=== PATIENT | female | born 1950 | race Caucasian/White ===

== ENCOUNTER 2018-07-27 15:13 | Inpatient (IN) | payer OTHER ==
[~2018-07-27] VITALS: Ht 172.7 cm; Wt 76.3 kg
--- NOTE | ~2018-07-27 | EKG ---
[place], [place] ELECTROCARDIOGRAM REPORT NAME: JUAN MELGOZA UNIT #: [id number] ROOM: 519 DOCTOR: EPIPHANY DRAFT REPORT BIRTHDATE: [birth year] [facility] Test Date: 2018-07-27 Test Time: 16:37:27 Pat Name: JUAN MELGOZA Department: Room: 519 Gender: F Equipment Service Engineer: Booker Cabello : 1950 Requested By: SHAILESH PAN Order Number: [id number] Reading MD: Ha Cooley MD Measurements Intervals [place] Rate: 56 P: 103 GA: 145 QRS: 32 QRSD: 92 T: 40 QT: 458 QTc: 443 Interpretive Statements Sinus rhythm Probable anteroseptal infarct, old Electronically Signed On 07-31-2018 8:29:47 PST by Ha Cooley MD CM:EKGRPT:ELECTROCARDIOGRAM REPORT [id number] SHAILESH PAN EPIPHANY DRAFT REPORT SHAILESH PAN
[2018-07-27 15:14] VITALS: BP 110/43
[2018-07-27 15:34] LABS: BASO % 0.6 % (0.0-1.0); EOS # 0.1 10*3/uL (0.0-0.4); EOS % 1.9 % (1.0-4.0); HEMATOCRIT 39.2 % (37.0-47.0); HEMOGLOBIN 12.8 g/dl (12.0-16.0); LYMPH # 1.3 10*3/uL (1.3-4.4); LYMPH % 27.7 % (27.0-41.0); MEAN CELL VOLUME 95.8 fl (81.0-99.0); MEAN CORPUSCULAR HGB 31.3 pg (27.0-31.0); MEAN CORPUSCULAR HGB CONC 32.7 g/dl (33.0-37.0); MONO # 0.5 10*3/uL (0.1-1.0); MONO % 9.8 % (3.0-9.0); NEUT # 2.8 10*3/uL (2.3-7.9); NEUT % 59.8 % (47.0-73.0); PLATELET COUNT AUTOMATED 243 10*3/uL (130-400); RED BLOOD COUNT 4.09 10*6/uL (4.10-5.10); RED CELL DISTRI WIDTH 12.7 % (0-14.5); WHITE BLOOD COUNT 4.7 10*3/uL (4.8-10.8)
[2018-07-27 15:43] LABS: ACT PARTIAL THROMBO TIME 25.1 SECONDS (20.8-31.5)
[2018-07-27 15:48] LABS: ALBUMIN 3.2 gm/dl (3.1-4.5); ALKALINE PHOSPHATASE 73 U/L (45-117); BUN 15 mg/dl (7-24); CHLORIDE 107 mmol/L (98-107); CREATININE 0.95 mg/dL (0.55-1.02); POTASSIUM 2.9 mmol/L (3.5-5.1); SGOT/AST 15 IU/L (3-35); SGPT/ALT 18 U/L (12-78); SODIUM 145 mmol/L (136-145); TOTAL PROTEIN 6.6 gm/dL (6.4-8.2)
[2018-07-27 16:40] LABS: TROPONIN I < 0.015 ng/ml (<0.045)
[2018-07-27 16:51] VITALS: BP 112/60
[2018-07-27 16:57] VITALS: BP 108/42
[2018-07-27 17:15] VITALS: BP 119/52
[2018-07-27] MEDS ORDERED: PRAVACHOL40 MG PO (18:38)
[2018-07-27] MEDS ORDERED: VITAMIN D-32000 UNI1 PO (18:39)
[2018-07-27] MEDS ORDERED: Synthroid,Lev100 MCG PO (18:39)
[2018-07-27] MEDS ORDERED: ASPIRIN CHILDRE81 MG PO (18:39)
[2018-07-27 20:00] VITALS: BP 104/68
[2018-07-28] VITALS: BP 107/53
[2018-07-28 06:47] LABS: BASO % 0.2 % (0.0-1.0); EOS # 0.1 10*3/uL (0.0-0.4); EOS % 3.2 % (1.0-4.0); HEMATOCRIT 34.6 % (37.0-47.0); HEMOGLOBIN 11.1 g/dl (12.0-16.0); LYMPH # 1.6 10*3/uL (1.3-4.4); LYMPH % 39.4 % (27.0-41.0); MEAN CELL VOLUME 96.4 fl (81.0-99.0); MEAN CORPUSCULAR HGB 30.9 pg (27.0-31.0); MEAN CORPUSCULAR HGB CONC 32.1 g/dl (33.0-37.0); MEAN PLATELET VOLUME 9.2 fl (9.6-12.3); MONO # 0.4 10*3/uL (0.1-1.0); MONO % 10.7 % (3.0-9.0); NEUT # 1.9 10*3/uL (2.3-7.9); PLATELET COUNT AUTOMATED 196 10*3/uL (130-400); RED BLOOD COUNT 3.59 10*6/uL (4.10-5.10); RED CELL DISTRI WIDTH 12.7 % (0-14.5); WHITE BLOOD COUNT 4.1 10*3/uL (4.8-10.8)
[2018-07-28 06:54] LABS: BUN 15 mg/dl (7-24); CHLORIDE 115 mmol/L (98-107); CHOLESTEROL 114 mg/dL (<200); CREATININE 0.68 mg/dL (0.55-1.02); HDL CHOLESTEROL 44 mg/dl (40-60); LDL CHOLESTEROL 54 mg/dL (9-159); PHOSPHOROUS 2.6 mg/dL (2.5-4.9); POTASSIUM 3.2 mmol/L (3.5-5.1); SODIUM 147 mmol/L (136-145); TRIGLYCERIDES 78 mg/dl (<150); VLDL CHOLESTEROL 16 mg/dL (6-40)
[2018-07-28 08:00] VITALS: BP 104/47
[2018-07-28] MEDS ORDERED: DULE1ARO INH (09:23)
[2018-07-28 09:41] LABS: BILIRUBIN NEGATIVE (NEGATIVE); BLOOD NEGATIVE (NEGATIVE); CLARITY CLEAR (CLEAR); COLOR YELLOW (YELLOW); GLUCOSE NEGATIVE (NEGATIVE); KETONE TRACE (NEGATIVE); LEUKO ESTERASE NEGATIVE (NEGATIVE); NITRITE NEGATIVE (NEGATIVE); SPECIFIC GRAVITY 1.025 (1.005-1.030); UROBILINOGEN 0.2 E.U./dl (0.2-1.0)
[2018-07-28 09:44] LABS: VITAMIN D, 25-HYDROXY 62.2 ng/mL (30-100)
[2018-07-28 10:50] LABS: CALCIUM OXALATE CRYSTALS 1+; MUCOUS 1+
[2018-07-28 10:51] LABS: BACTERIA 2+
[2018-07-28 12:00] VITALS: BP 97/53
[2018-07-28 16:00] VITALS: BP 99/43
[2018-07-28 20:00] VITALS: BP 130/56
[2018-07-29] VITALS: BP 107/44
[2018-07-29 07:52] LABS: BASO % 0.7 % (0.0-1.0); EOS # 0.1 10*3/uL (0.0-0.4); EOS % 3.3 % (1.0-4.0); HEMATOCRIT 35.4 % (37.0-47.0); HEMOGLOBIN 11.5 g/dl (12.0-16.0); LYMPH # 1.2 10*3/uL (1.3-4.4); LYMPH % 29.4 % (27.0-41.0); MEAN CELL VOLUME 97.3 fl (81.0-99.0); MEAN CORPUSCULAR HGB 31.6 pg (27.0-31.0); MEAN CORPUSCULAR HGB CONC 32.5 g/dl (33.0-37.0); MEAN PLATELET VOLUME 9.2 fl (9.6-12.3); MONO # 0.5 10*3/uL (0.1-1.0); MONO % 10.8 % (3.0-9.0); NEUT # 2.3 10*3/uL (2.3-7.9); NEUT % 55.6 % (47.0-73.0); PLATELET COUNT AUTOMATED 208 10*3/uL (130-400); RED BLOOD COUNT 3.64 10*6/uL (4.10-5.10); RED CELL DISTRI WIDTH 12.8 % (0-14.5); WHITE BLOOD COUNT 4.2 10*3/uL (4.8-10.8)
[2018-07-29 08:00] VITALS: BP 100/54
[2018-07-29 08:05] LABS: BUN 10 mg/dl (7-24); CHLORIDE 114 mmol/L (98-107); CREATININE 0.69 mg/dL (0.55-1.02); POTASSIUM 3.5 mmol/L (3.5-5.1); SODIUM 145 mmol/L (136-145)
[2018-07-29] MEDS ORDERED: B12,B-12,B 12500 MC1 PO (10:28)
[2018-07-29] MEDS ORDERED: KEFLEX500 M1 PO (10:30)
[2018-07-29] MEDS ORDERED: DOXYCYCLINE100 M3 PO (10:30)
== END 2018-07-29 13:24 | disposition home or self-care (01) | DRG 603 ==
LOC: ED 15:13 → EDHOLD 16:27 → 5E 16:27
PROVIDERS: Internal Medicine; Nurse Practitioner Family; Student in an Organized Health Care Education/Training Program
DX: L03.114 Cellulitis of left upper limb (principal); E87.0 Hyperosmolality and hypernatremia; Z78.9 Other specified health status; H54.7 Unspecified visual loss; E66.3 Overweight; E53.8 Deficiency of other specified B group vitamins; E87.6 Hypokalemia; N18.3 Chronic kidney disease, stage 3 (moderate); J45.909 Unspecified asthma, uncomplicated; Z85.3 Personal history of malignant neoplasm of breast; Z88.1 Allergy status to other antibiotic agents; Z88.2 Allergy status to sulfonamides; Z88.6 Allergy status to analgesic agent; Z90.49 Acquired absence of other specified parts of digestive tract; Z82.49 Family history of ischemic heart disease and other diseases of the circulatory system; Z79.82 Long term (current) use of aspirin; Z79.899 Other long term (current) drug therapy; Z68.25 Body mass index [BMI] 25.0-25.9, adult